=== PATIENT | male | born 1980 | race Caucasian/White ===

== ENCOUNTER → 2017-12-19 | Outpatient (CLI) | payer OTHER ==
--- NOTE | 2017-12-20 07:40 | MR ---
EXAMINATION TYPE: MR lumbar spine wo con DATE OF EXAM: 12/19/2017 COMPARISON: Outside lumbar spine x-ray October 29, 2017. HISTORY: Pain in left leg per patient. Lumbar region radiculopathy per order. TECHNIQUE: Multiplanar, multisequence imaging of the lumbar spine is performed without IV contrast. FINDINGS: Sagittal images of the lumbar spine show vertebral body heights and alignment to appear sat isfactory. There is disc desiccation with mild disc space narrowing L5-S1 level otherwise the interve rtebral discs demonstrate normal heights and hydration. Posterior disc herniation L5-S1 level is pres ent on sagittal images. The conus medullaris is normal in position and signal ending superior L1 leve l. The bone marrow signal intensity is within normal limits. Axial images show the T12-L1, L1-L2, L2-L3, and L3-L4 levels all to appear within normal limits. Axial images at L4-L5 level show mild facet degenerative changes bilaterally. Spinal canal is preserv ed. Bilateral neural foramina are patent. Axial images at L5-S1 level show mild facet degenerative changes bilaterally. There is left paracentr al disc protrusion effacing anterolateral thecal sac and lateral recess seen best axial image 2 measu ring roughly 6 mm AP diameter by 8 mm transversely. Bilateral neural foramina are patent. There is barrientos spected encroachment on central left S1 nerve. No suspicious incidental retroperitoneal findings are present. IMPRESSION: Eccentric disc herniation L5-S1 level effaces exiting left S1 nerve in the lateral recess .
== END | disposition home or self-care (01) ==
LOC: RADMRIMAIN 12-09 11:59
PROVIDERS: ATTEND Internal Medicine Geriatric Medicine
DX: M51.17 Intervertebral disc disorders with radiculopathy, lumbosacral region (principal)
CPT/HCPCS: 72148

== ENCOUNTER → 2020-05-16 | Outpatient (CLI) | payer OTHER | END | disposition home or self-care (01) | LOC: LABWHC1 17:15 | PROVIDERS: ATTEND Emergency Medicine | DX: Z20.822 Contact with and (suspected) exposure to COVID-19 (principal) | CPT/HCPCS: U0003; C9803 ==

== ENCOUNTER 2023-06-06 17:40 | Emergency (ER) | payer BC ==
[2023-06-06 18:14] VITALS: RESP 18; TEMP 98
--- NOTE | 2023-06-06 18:24 | ED ---
General Adult HPI - General Source: patient, RN notes reviewed Mode of arrival: ambulatory Limitations: no limitations <Paz Larsen - Last Filed: 06/06/23 18:21> - General Source: patient, RN notes reviewed Mode of arrival: ambulatory Limitations: no limitations <Erma Escoto - Last Filed: 06/06/23 21:37> - General Chief complaint: Recheck/Abnormal Lab/Rx Stated complaint: high bp/flutter feeling in chest Time Seen by Provider: 06/06/23 17:55 - History of Present Illness Initial comments: Quick [id number]old male presents to the ED with chief complaint of elevated blood pressure. Patient states that he was at his primary care office for was noted to have elevated blood pressure on Saturday, with a repeat visit today with primary no readings were in the 160s over 100s. Patient states that he has been checking his blood pressure at home with his elevated readings as well. Denies PACHECO, chest pain or pressure, blurry vision, double vision. Denies current or past history of BP medication. (Paz Larsen) 42-year-old male presented to the ER with a chief complaint of elevated blood pressures. Patient states he was seen by PCP for sciatica on Saturday and was fo und to have an elevated blood pressure. He reports it was in 160/1 100s. He has been monitoring his blood pressure at home and states it has been elevated. He is an anxious person and states his blood pressure is always elevated. Patient follows up today for blood pressure check at PCP and it was elevated. Patient denies any current antihypertensive medications. He denies any headache, dizziness, lightheadedness, chest pain, shortness of breath, abdominal pain or peripheral edema. (Erma Escoto) - Related Data Previous Rx's Medication Instructions Recorded amLODIPine [Norvasc] 2.5 mg PO DAILY #30 tablet 06/06/23 Allergies Allergy/AdvReac Type Severity Reaction Status Date / Time No Known Allergies Allergy Verified 06/06/23 17:57 Review of Systems ROS Other: All systems not noted in ROS Statement are negative. <Paz Larsen - Last Filed: 06/06/23 18:21> ROS Other: All systems not noted in ROS Statement are negative. <Erma Escoto - Last Filed: 06/06/23 21:37> ROS Statement: Those systems with pertinent positive or pertinent negative responses have been documented in the HPI. Past Medical History Past Medical History: No Reported History History of Any Multi-Drug Resistant Organisms: None Reported Past Surgical History: Orthopedic Surgery Past Psychological History: Anxiety Smoking Status: Never smoker Past Alcohol Use History: Heavy Past Drug Use History: None Reported <Paz Larsen - Last Filed: 06/06/23 18:21> General Exam Limitations: no limitations <Paz Larsen - Last Filed: 06/06/23 18:21> General appearance: alert, in no apparent distress Head exam: Present: atraumatic, normocephalic, normal inspection Eye exam: Present: normal appearance, PERRL, EOMI. Absent: scleral icterus, c onjunctival injection, periorbital swelling Pupils: Present: normal accommodation Respiratory exam: Present: normal lung sounds bilaterally. Absent: respiratory distress, wheezes, rales, rhonchi, stridor Cardiovascular Exam: Present: regular rate, normal rhythm, normal heart sounds. Absent: systolic murmur, diastolic murmur, rubs, gallop, clicks Extremities exam: Present: normal inspection, full ROM, normal capillary refill. Absent: tenderness, pedal edema, joint swelling, calf tenderness Neurological exam: Present: alert, oriented X3, CN II-XII intact Psychiatric exam: Present: normal affect, normal mood Skin exam: Present: warm, dry, intact, normal color. Absent: rash <Erma Escoto - Last Filed: 06/06/23 21:37> - General Exam Comments Initial Comments: Visual Physical Exam Vital signs reviewed General: Well-appearing, nontoxic, no acute distress. Head: Normocephalic, atraumatic Eyes: PERRLA, EOMI ENT: Airway patent Chest: Nonlabored breathing Skin: No visual rash, normal skin tone Neuro: Alert and oriented 3 Musculoskeletal: No gross abnormalities (Paz Larsen) Course Vital Signs 06/06/23 06/06/23 17:53 19:37 Temperature 98.0 F Pulse Rate 102 H 80 Respiratory 18 18 Rate Blood Pressure 157/132 159/90 O2 Sat by Pulse 98 98 Oximetry Medical Decision Making <Paz Larsen - Last Filed: 06/06/23 18:21> - Lab Data Result diagrams: 06/06/23 18:40 06/06/23 18:40 - EKG Data -: EKG Interpreted by Me <Erma Escoto - Last Filed: 06/06/23 21:37> - Medical Decision Making I completed the quick note portion of this chart signed Paz Larsen PA-C (Paz Larsen) Was pt. sent in by a medical professional or institution (TIFFANI Giron, SECURITY GUARDS DISPATCHER, urgent care, hospital, or [facility]...) When possible be specific @ -No Did you speak to anyone other than the patient for history (EMS, parent, family, police, friend...)? What history was obtained from this source @ -No Did you review nursing and triage notes (agree or disagree)? Why? @ -I reviewed and agree with nursing and triage notes Were old charts reviewed (outside hosp., previous admission, EMS record, old EKG, old radiological studies, urgent care reports/EKG's, [facility] records)? Report findings @ -No old charts were reviewed Differential Diagnosis (chest pain, altered mental status, abdominal pain women, abdominal pain men, vaginal bleeding, weakness, fever, dyspnea, syncope, headache, dizziness, GI bleed, back pain, seizure, CVA, palpatations, mental health, musculoskeletal)? @ -Hypertension, hypertensive crisis, hypertensive emergency, this list is not meant to be all-inclusive EKG interpreted by me (3pts min.). @ -As above X-rays interpreted by me (1pt min.). @ -None done CT interpreted by me (1pt min.). @ -None done U/S interpreted by me (1pt. min.). @ -None done What testing was considered but not performed or refused? (CT, X-rays, U/S, labs)? Why? @ -None What meds were considered but not given or refused? Why? @ -None Did you discuss the management of the patient with other professionals (professionals i.e. TIFFANI Giron, SECURITY GUARDS DISPATCHER, lab, RT, psych nurse, social organization professor, bus and trolley inspecting dispatcher, teacher, corporate security officer, case packer)? Give summary @ -No Was smoking cessation discussed for >3mins.? @ -No Was critical care preformed (if so, how long)? @ -No Were there social determinants of health that impacted care today? How? (Homelessness, low income, unemployed, alcoholism, drug addiction, transportation, low edu. Level, literacy, decrease access to med. care, senior care, rehab)? @ -No Was there de-escalation of care discussed even if they declined (Discuss DNR or withdrawal of care, Hospice)? DNR status @ -No What co-morbidities impacted this encounter? (DM, HTN, Smoking, COPD, CAD, Cancer, CVA, ARF, Chemo, Hep., AIDS, mental health diagnosis, sleep apnea, morbid obesity)? @ -None Was patient admitted / discharged? Hospital course, mention meds given and route, prescriptions, significant lab abnormalities, going to OR and other pertinent info. @ -Discharge. Patient is a 42-year-old male presented to the ER with chief complaint of elevated blood pressures. History and physical exam completed. Blood pressure obtained in triage 157/132. Upon evaluation repeat blood pressure was 159/90. Patient in no signs of acute distress and nontoxic-appea ring. Labs obtained unactionable. EKG showing sinus rhythm with no acute ST segment or T wave abnormalities. Results discussed with patient, all questions answered. Patient will be started on Norvasc. Advise close follow-up with PCP. Return parameters discussed. Patient discharged in stable condition with follow-up to PCP. Patient verbally expressed understanding and agreement with care plan. Case discussed with ED attending, Dr. Quezada. Undiagnosed new problem with uncertain prognosis? @ -No Drug Therapy requiring intensive monitoring for toxicity (Heparin, Nitro, Insulin, Cardizem)? @ -No Were any procedures done? @ -No Diagnosis/symptom? @ -Hypertension Acute, or Chronic, or Acute on Chronic? @ -Acute Uncomplicated (without systemic symptoms) or Complicated (systemic symptoms)? @ -Uncomplicated Side effects of treatment? @ -No Exacerbation, Progression, or Severe Exacerbation? @ -No Poses a threat to life or bodily function? How? (Chest pain, USA, NM, pneumonia, PE, COPD, DKA, ARF, appy, cholecystitis, CVA, Diverticulitis, Homicidal, Suicidal, threat to staff... and all critical care pts) @ -No (Erma Escoto) - Lab Data Lab Results 06/06/23 06/06/23 06/06/23 Range/Units 18:40 18:40 18:40 WBC 5.4 (3.8-10.6) k/uL RBC 4.98 (4.30-5.90) m/uL Hgb 15.8 (13.0-17.5) gm/dL Hct 47.3 (39.0-53.0) % MCV 94.8 (80.0-100.0) fL MCH 31.7 (25.0-35.0) pg MCHC 33.4 (31.0-37.0) g/dL RDW 12.5 (11.5-15.5) % Plt Count 227 (150-450) k/uL MPV 7.6 Neutrophils % 70 % Lymphocytes % 20 % Monocytes % 7 % Eosinophils % 1 % Basophils % 1 % Neutrophils # 3.8 (1.3-7.7) k/uL Lymphocytes # 1.1 (1.0-4.8) k/uL Monocytes # 0.4 (0-1.0) k/uL Eosinophils # 0.0 (0-0.7) k/uL Basophils # 0.1 (0-0.2) k/uL PT 9.5 L (10.0-12.5) sec INR 0.8 (<1.2) APTT 24.9 (22.0-30.0) sec Sodium 136 L (137-145) mmol/L Potassium 3.8 (3.5-5.1) mmol/L Chloride 100 (98-107) mmol/L Carbon Dioxide 26 (22-30) mmol/L Anion Gap 10 mmol/L BUN 10 (9-20) mg/dL Creatinine 0.87 (0.66-1.25) mg/dL Est GFR (CKD-EPI)AfAm >90 (>60 ml/min/1.73 sqM) Est GFR (CKD-EPI)NonAf >90 (>60 ml/min/1.73 sqM) Glucose 95 (74-99) mg/dL Calcium 9.5 (8.4-10.2) mg/dL Magnesium 1.9 (1.6-2.3) mg/dL Total Bilirubin 0.6 (0.2-1.3) mg/dL AST 163 H (17-59) U/L ALT 231 H (4-49) U/L Alkaline Phosphatase 74 (38-126) U/L Total Protein 7.3 (6.3-8.2) g/dL Albumin 4.6 (3.5-5.0) g/dL - EKG Data EKG Comments: EKG taken at 18: 35 showing a sinus rhythm with T wave inversion in anterior leads. No acute ST segment changes. Ventricular rate 96, FL interval 153, QRS duration 90, QT/QTc 331/385. (Erma Escoto) Disposition <Paz Larsen - Last Filed: 06/06/23 18:21> Is patient prescribed a controlled substance at d/c from ED?: No Time of Disposition: 20:04 <Erma Escoto - Last Filed: 06/06/23 21:37> Clinical Impression: Hypertension Disposition: HOME SELF-CARE Condition: Stable Instructions (If sedation given, give patient instructions): Hypertension (ED) Additional Instructions: Take Norvasc daily. Follow-up with PCP. Return to the ER for any new or worsening concerns. Prescriptions: amLODIPine [Norvasc] 2.5 mg PO DAILY #30 tablet Referrals: Jamel Tang DO [Primary Care Provider] - 1-2 days
[2023-06-06 18:56] LABS: Basophils # (A) 0.1 k/uL (0-0.2); Basophils % (A) 1 %; Eosinophils % (A) 1 %; HCT 47.3 % (39.0-53.0); HGB 15.8 gm/dL (13.0-17.5); Lymphocytes # (A) 1.1 k/uL (1.0-4.8); Lymphocytes % (A) 20 %; MCH 31.7 pg (25.0-35.0); MCHC 33.4 g/dL (31.0-37.0); MCV 94.8 fL (80.0-100.0); Mean Platelet Volume 7.6; Monocytes # (A) 0.4 k/uL (0-1.0); Monocytes % (A) 7 %; Neutrophils # (A) 3.8 k/uL (1.3-7.7); Neutrophils % (A) 70 %; Platelet Count 227 k/uL (150-450); RBC 4.98 m/uL (4.30-5.90); RDW 12.5 % (11.5-15.5); WBC 5.4 k/uL (3.8-10.6)
[2023-06-06 18:58] LABS: ALT 231 U/L (4-49); AST 163 U/L (17-59); African American GFR (CKD) >90 (>60 ml/min/1.73 sqM); Albumin 4.6 g/dL (3.5-5.0); Alkaline Phosphatase 74 U/L (38-126); Anion Gap 10 mmol/L; Blood Urea Nitrogen 10 mg/dL (9-20); Calcium 9.5 mg/dL (8.4-10.2); Carbon Dioxide 26 mmol/L (22-30); Chloride 100 mmol/L (98-107); Glucose 95 mg/dL (74-99); Magnesium 1.9 mg/dL (1.6-2.3); Non-African American GFR(CKD) >90 (>60 ml/min/1.73 sqM); Potassium 3.8 mmol/L (3.5-5.1); Sodium 136 mmol/L (137-145); Total Bilirubin 0.6 mg/dL (0.2-1.3); Total Protein 7.3 g/dL (6.3-8.2)
[2023-06-06 18:59] LABS: INR 0.8 (<1.2); Partial Thromboplastin Time 24.9 sec (22.0-30.0); Prothrombin Time 9.5 sec (10.0-12.5)
[2023-06-06 20:00] VITALS: BP 159/90; PULSE 80
== END 2023-06-06 20:10 | disposition home or self-care (01) ==
LOC: EC 17:40
DX: I10 Essential (primary) hypertension (principal)
CPT/HCPCS: 36415; 80053; 83735; 85025; 85610; 85730; 93005; 99283

== ENCOUNTER → 2023-06-10 | Outpatient (CLI) | payer BC ==
--- NOTE | 2023-06-10 09:42 | US ---
EXAMINATION TYPE: US abdomen complete DATE OF EXAM: 06/10/2023 COMPARISON: NONE CLINICAL INDICATION: Male, 42 years old with history of R10.11 RUQ PAIN; Abn liver labs. Right side muscle pull x years and feels like umbilicus has shifted to the right per patient. TECHNIQUE: Multiple sonographic images of the abdomen are obtained. FINDINGS: EXAM MEASUREMENTS: Liver Length: 17.6 cm Gallbladder Wall: 0.1 cm CBD: 0.4 cm Spleen: 11.5 cm Right Kidney: 9.5 x 4.6 x 5.2 cm Left Kidney: 11.2 x 4.7 x 5.3 cm Pancreas: Tail obscured by overlying bowel gas. Echogenic in appearance Liver: Appears echogenic. Hypoechoic area seen adjacent to GB = 1.5 x 1.0 x 1.2 cm. Gallbladder: No stones or wall thickening Evidence for sonographic Winkler's sign: neg CBD: limited visualization Spleen: wnl Right Kidney: No hydronephrosis or masses seen Left Kidney: No hydronephrosis or masses seen Upper IVC: wnl Abd Aorta: No AAA visualized at time of scan IMPRESSION: 1. Hepatomegaly. 2. Small hypoechoic area within the liver adjacent to the gallbladder which is nonspecific but could be related to some focal fatty sparing. Consider follow-up in 6 months.
== END | disposition home or self-care (01) ==
LOC: RADUSWWP 07:51
PROVIDERS: ATTEND Family Medicine
DX: K76.89 Other specified diseases of liver (principal); R16.0 Hepatomegaly, not elsewhere classified
CPT/HCPCS: 76700

== ENCOUNTER → 2023-06-21 | Outpatient (CLI) | payer BC ==
--- NOTE | 2023-06-22 12:30 | MR ---
EXAMINATION TYPE: MR lumbar spine wo con DATE OF EXAM: 06/21/2023 COMPARISON: Prior MRI lumbar spine December 19, 2017. HISTORY: Low back pain that radiates down left leg, history of surgery. Radiculopathy. TECHNIQUE: Multiplanar, multisequence imaging of the lumbar spine is performed without IV contrast. FINDINGS: Sagittal images of the lumbar spine show vertebral body heights and alignment to remain sat isfactory. There is disc desiccation with mild disc space narrowing L5-S1 level redemonstrated otherw ise the intervertebral discs demonstrate normal heights and hydration. The conus medullaris remains n ormal in position and signal ending superior L1 level. The bone marrow signal intensity is within no rmal limits. Axial images show the T12-L1, L1-L2, L2-L3, and L3-L4 levels all to remain within normal limits. Axial images at L4-L5 level redemonstrate mild to moderate facet degenerative changes bilaterally. Sp inal canal is preserved. Bilateral neural foramina remain patent. No significant change from prior. Axial images at L5-S1 level redemonstrated mild facet degenerative changes bilaterally. Mild broad-ba sed posterior disc protrusion. Prior focal disc herniation now is not identified. Left-sided laminect dominguez defect seen axial image 1 series 501. Bilateral neural foramina remain patent. Paraspinal muscle bulk is maintained. IMPRESSION: Interval successful surgical repair of the eccentric disc herniation L5-S1 level. Mild fa cet degenerative changes lower lumbar spine. No new large focal disc herniation is seen.
== END | disposition home or self-care (01) ==
LOC: RADMRIMAIN 19:00
PROVIDERS: ATTEND Family Medicine
DX: M47.26 Other spondylosis with radiculopathy, lumbar region (principal)
CPT/HCPCS: 72148